=== PATIENT | female | born 1950 | race Caucasian/White ===

== ENCOUNTER 2016-06-11 10:52 | Day surgery (SDC) | payer MEDICARE, OTHER ==
[~2016-06-11 10:52] MED LIST: IBUPROFEN200 M2 PO; LOSARTAN; ULTRAM50 M1
[2016-06-11 12:02] LABS: BASO % 0.3 % (0-2); HCT-HEMATOCRIT 25.3 % (34.0-49.0); HGB-HEMOGLOBIN 8.5 gm/dl (12.0-15.5); IMMATURE GRANULOCYTES ABSOLUTE 0.03 tho/cmm (0-0.03); LYMPH % 35.4 % (20-45); LYMPH ABSOLUTE COUNT 1.1 tho/cmm (0.8-4.5); MCH (MEAN CORPUSCULAR HGB) 31.6 pg (28.0-32.0); MCHC MEAN CORPUSCULAR HGB CONC 33.6 % (32.0-36.0); MCV (MEAN CELL VOLUME) 94.1 fl (82.0-96.0); MEAN PLATELET VOLUME 9.4 cmc (9.4-12.4); MONO % 10.1 % (0-12); MONOCYTE ABSOLUTE COUNT 0.3 tho/cmm (0.0-1.2); NEUTROPHIL ABSOLUTE COUNT 1.6 tho/cmm (1.6-8.0); NEUTROPHIL-AUTOMATED 1.6 tho/cmm (1.6-8.0); NEUTROPHILS % 52.2 % (40-80); PLATELET COUNT 137 tho/cmm (150-450); RED BLOOD COUNT 2.69 mil/cmm (4.00-5.20); RED CELL DISTRIBUTION WIDTH 15.9 % (12.4-16.4)
[2016-06-11 12:03] LABS: PROTHROMBIN TIME 11.5 SECONDS (9.0-13.6)
[2016-06-11 14:21] LABS: ALBUMIN 3.6 g/dl (3.5-5.0); ALKALINE PHOSPHATASE 142 U/L (33-138); ALT/SGPT 132 U/L (12-78); ANION GAP 15 mmol/L (0-20); AST/SGOT 79 U/L (10-40); BLOOD UREA NITROGEN 23 mg/dl (6-24); CALCIUM 11.4 mg/dl (8.5-10.5); CARBON DIOXIDE-VENOUS 25 mmol/L (22-32); CHLORIDE 103 mmol/l (96-110); CREATININE 1.27 mg/dl (0.50-1.10); GLUCOSE 89 mg/dL (70-110); SODIUM 139 mmol/L (135-145); eGFR VALUE FOR BLACK 51 mL/Min
== END 2016-06-11 16:25 ==
LOC: SHSB 10:52
PROVIDERS: Radiology Diagnostic Radiology
PROC: 0FB03ZX Excision of Liver, Percutaneous Approach, Diagnostic (ICD-10-PCS; principal; 2016-06-11)
PROC: 05HM33Z Insertion of Infusion Device into Right Internal Jugular Vein, Percutaneous Approach (ICD-10-PCS; principal; 2016-06-11)
PROC: B543ZZA Ultrasonography of Right Jugular Veins, Guidance (ICD-10-PCS; principal; 2016-06-11)
PROC: B513YZA Fluoroscopy of Right Jugular Veins using Other Contrast, Guidance (ICD-10-PCS; principal; 2016-06-11)
DX: C22.7 Other specified carcinomas of liver (principal); Z85.3 Personal history of malignant neoplasm of breast; Z79.899 Other long term (current) drug therapy
CPT/HCPCS: C1788; J0690; J2250; J2405; J3010; J7030